=== PATIENT | female | born 1940 | race Caucasian/White ===

== ENCOUNTER 2016-12-31 10:26 | Outpatient (CLI) | payer MEDICARE ==
--- NOTE | 2016-12-31 11:28 | RAD ---
LUMBAR SPINE TWO VIEWS: History: 76-year-old female with lumbar radiculopathy status post-surgery in August with persistent low back pa in. Comparison: 10-23-16 FINDINGS: Minimal levoscoliosis of the upper lumbar/lower thoracic vertebral column. Right sided pedicle screw s stabilize L1 and L2. Generalized spondylosis. No new process. Stable from prior study. IMPRESSION: Stable post-operative changes at L1-2. Generalized spondylosis. No acute fracture. POS: OFF
--- NOTE | 2016-12-31 15:28 | RAD ---
FLEXION AND EXTENSION VIEWS OF LUMBAR SPINE: Date: 12/31/16 HISTORY: Lumbar radiculopathy. Continued back pain. COMPARISON: 12/31/16. FINDINGS: Unilateral right-sided pedicular screws at the L1-2 level with posterior rods are present. No hardwa re complication is appreciated. As noted on the prior study, there is stable anterior subluxation of C4 on C5, which does appear to slightly increase between flexion and extension with the degree of a nterolisthesis on extension measuring 7-8 mm and on flexion the degree of anterolisthesis measures a pproximately 9 mm. No additional level of subluxation or abnormal translational motion is seen. The vertebral body heights are within normal limits. Prominent end plate degenerative changes seen at th e L1-2 level with osteophyte formation present. IMPRESSION: 1. Grade I anterolisthesis of L4 on L5 with slight abnormal translational motion seen between flexi on and extension. 2. Postsurgical changes related to posterior fusion of the L1-2 level. POS: LATONIA
--- NOTE | 2016-12-31 17:15 | MRI ---
MRI LUMBAR SPINE WITH AND WITHOUT CONTRAST: Date: 12/31/16 TECHNIQUE: Multiplanar, multisequential imaging lumbar spine obtained. Postcontrast images were obtained after administration of 20 mL MultiHance. HISTORY: Lumbar radiculopathy. Comparison made to MRI lumbar spine dated 06/13/16. FINDINGS: Postoperative changes are now noted at L1-2 when compared to the prior study. There are pedicle scre ws on the right at L1-2. Loss of disc space at L1-2 with degenerative end plate changes at this leve l again noted. Pedicle screw at L1 obscures the lateral recess and also appears to encroach into the superior aspect of the left foramina. Exact position is difficult to ascertain on MRI due to metall ic artifact. No evidence of central canal stenosis or residual or recurrent disc. Pedicle screw at L2 also obscures the lateral recess. Suggest CT to further evaluate pedicle screw p osition. At L2-3, there is mild disc bulge and facet hypertrophy without central canal or foraminal stenosis. At L3-4, there is mild disc bulge. Prominent facet hypertrophy and arthrosis. Mild central canal shabbir nosis. At L4-5, there is slight anterolisthesis with diffuse disc bulge abutting the thecal sac. Prominent facet arthrosis and hypertrophy. Mild central canal stenosis. At L5-S1, there is minimal disc bulge. Facet arthrosis and hypertrophy. No central canal or foramina l stenosis. IMPRESSION: Postop changes at L1-2 now noted with pedicle screws on the right. Pedicle screws at both of these l evels obscure the lateral recesses. Consider CT to better evaluate pedicle screw location. Mild disc bulge and facet hypertrophy at the other levels as described. POS: LATONIA
== END 2016-12-31 10:27 | disposition home or self-care (01) ==
LOC: TBSIIMAG 10:26
PROVIDERS: ATTEND Neurological Surgery
DX: M47.26 Other spondylosis with radiculopathy, lumbar region (principal); M43.16 Spondylolisthesis, lumbar region; Z98.1 Arthrodesis status
CPT/HCPCS: 72100; 72158

== ENCOUNTER 2017-01-13 13:10 | Outpatient (CLI) | payer MEDICARE ==
[2017-01-13 13:54] LABS: Hematocrit 48.8 % (36.0-47.0); Mean Platelet Volume 7.5 fL (7.4-10.4); Red Blood Cell (RBC) Count 5.02 mill/uL (4.20-5.40); White Blood Cell (WBC) Count 7.7 thou/uL (4.8-10.8)
--- OUTSIDE RECORDS SUMMARY | 2017-01-13 13:55 | XMS | Clinical Summary ---
:1940 Author Organization [facility] Address [address] [place] [address] Phone Care Team Providers Name Role Phone , Primary Care Provider Unavailable Allergies Active Allergy Reactions Severity Noted Date Comments Ibuprofen Medium 05/25/2013 Current Medications Prescription Sig. Disp. Refills Start Date End Date Status albuterol (PROVENTIL Inhale 1 puff by mouth Active HFA;VENTOLIN HFA) 90 via inhaler every 6 mcg/actuation inhaler (six) hours as needed. halobetasol Apply topically 2 Active (ULTRAVATE) 0.05 % (two) times daily. cream ipratropium-albuterol Take 3 mLs by Active (DUO-NEB) 0.5 mg-3 nebulization every 6 mg(2.5 mg base)/3 mL (six) hours as needed. nebulizer solution fexofenadine (AMANDA) Take 180 mg by mouth Active 180 MG tablet daily. omega-3 fatty Take by mouth. Active acids-vitamin E 1,000 mg Cap cholecalciferol, Take 5,000 Units by Active vitamin D3, 5,000 unit mouth daily. Tab HYDROcodone-acetaminop Take 1 tablet by mouth Active hen (NORCO 5-325) every 8 (eight) hours 5-325 mg per tablet as needed. Active Problems Problem Noted Date Atrial fibrillation 06/17/2013 S/p patch closure of ASD (surgery by Dr. Marlene Pitts, 05/26/13 at [facility]) 06/17 Pleural effusion, left (small) 06/17/2013 Chest pain 05/27/2013 Cardiac dysfunction 05/27/2013 Chronic back pain 05/27/2013 ASD (atrial septal defect), ostium secundum 05/26/2013 Social History Tobacco Use Types Packs/Day Years Used Date Former Smoker Alcohol Use Drinks/Week oz/Week Comments Yes wine maybe once a month Sex Assigned at Date Recorded Not on file Last Filed Vital Signs Vital Sign Reading Time Taken Blood Pressure 121/58 06/17/2013 12:49 PM CDT Pulse 82 06/17/2013 12:49 PM CDT Temperature 36.5 C (97.7 F) 06/17/2013 12:49 PM CDT Respiratory Rate 18 06/02/2013 11:00 AM CDT Oxygen Saturation 96% 06/17/2013 12:49 PM CDT Inhaled Oxygen Concentration - - Weight 97.3 kg (214 lb 8 oz) 06/17/2013 12:49 PM CDT Height 154.9 cm (5' 1") 06/17/2013 12:49 PM CDT Body Mass Index 40.53 06/17/2013 12:49 PM CDT Plan of Treatment Health Maintenance Due Date Last Done Comments INFLUENZA VACCINE 12/15/2016 Results Not on filefrom Last 3 Months
[2017-01-13 14:18] LABS: Anion Gap 14 mmol/L (10-20); BUN (Urea Nitrogen) 16 mg/dL (9.8-20.1); Calc. Creatinine Clearance 0 mL/min (70-130); Calcium 10.2 mg/dL (7.8-10.44); Carbon Dioxide 31 mmol/L (23-31); Chloride 103 mmol/L (98-107); Estimated GFR-MDRD 76
== END 2017-01-13 13:11 | disposition home or self-care (01) ==
LOC: LABBT 13:10
PROVIDERS: ATTEND Neurological Surgery
DX: Z01.818 Encounter for other preprocedural examination (principal); M54.16 Radiculopathy, lumbar region
CPT/HCPCS: 80048; 85027; 93005; 93010

== ENCOUNTER 2017-02-04 11:11 | Outpatient (CLI) | payer MEDICARE ==
--- NOTE | 2017-02-04 13:34 | RAD ---
TWO VIEWS LUMBAR SPINE: Date: 02-04-17 Comparison: 12-31-16 History: Surgery two weeks ago. Lumbar degenerative disc disease. FINDINGS: Surgical clips are seen in the right upper quadrant of the abdomen. Cutaneous lizzeth overlie the low er lumbar spine. There is a right sided pedicle screw at L1 and L2 with a vertically oriented interlo cking pola, as seen on the prior exam. There are new L4 and L5 bilateral pedicle screws with verticall y oriented interlocking rods. There is anterolisthesis of L4 on L5 measuring 8 mm, stable. There is disc space narrowing with anterior osteophyte formation at L1-2 and to a lesser degree L2-3. No acute osseous abnormality is seen. No evidence for hardware failure. IMPRESSION: Multilevel post-operative change within the lumbar spine as detailed above. POS: LATONIA
== END 2017-02-04 11:12 | disposition home or self-care (01) ==
LOC: TBSIIMAG 11:11
PROVIDERS: ATTEND Physician Assistant
DX: M51.36 Other intervertebral disc degeneration, lumbar region (principal); Z98.1 Arthrodesis status
CPT/HCPCS: 72100

== ENCOUNTER 2017-04-03 14:06 | Outpatient (CLI) | payer MEDICARE ==
--- NOTE | 2017-04-03 15:38 | RAD ---
LUMBAR SPINE RADIOGRAPH SERIES 2-3 VIEWS: COMPARISON: 02/04/17 INDICATION: Lumbar degenerative disk disease. Prior back surgery. FINDINGS: There is evidence of right-side posterior metallic fusion of L1-2, and bilateral posterior metallic f usion of L4-5. There is grade I spondylolisthesis of L4 on L5, which is grossly stable. No obvious, interval hardware complication is seen. Multilevel degenerative changes persist. There is vascular calcification. IMPRESSION: Postoperative lumbar spine with a stable degree of grade I spondylolisthesis at L4-5. POS: LATONIA
== END 2017-04-03 14:07 | disposition home or self-care (01) ==
LOC: TBSIIMAG 14:06
PROVIDERS: ATTEND Neurological Surgery
DX: M51.36 Other intervertebral disc degeneration, lumbar region (principal); M43.16 Spondylolisthesis, lumbar region; Z98.1 Arthrodesis status
CPT/HCPCS: 72100